=== PATIENT | male | born 1980 | race Caucasian/White ===

== ENCOUNTER 2018-01-21 13:06 | Emergency (ER) | payer OTHER ==
[~2018-01-21] VITALS: Ht 188 cm; Wt 112.5 kg
--- NOTE | 2018-01-21 13:14 | NUR ---
at bedside to see and examine patient.
--- NOTE | 2018-01-21 13:28 | NUR ---
PT. taken down via wheelchair for x-ray.
--- NOTE | 2018-01-21 13:43 | NUR ---
pt. back from x-ray
--- NOTE | 2018-01-21 14:07 | NUR ---
at bedside to review test results with pt.
--- NOTE | 2018-01-21 14:10 | NUR ---
DCD instructions an a copy of x-ray results given to pt. as requested.
[2018-01-22] MEDS ORDERED: LEVOFLOXACIN 750MG/D5W 0 ML IV ONE (06:34)
== END 2018-01-21 14:10 | disposition home or self-care (01) ==
LOC: ER 13:06
DX: S20.211A Contusion of right front wall of thorax, initial encounter (principal); W01.198A Fall on same level from slipping, tripping and stumbling with subsequent striking against other object, initial encounter; Y93.89 Activity, other specified; Y92.89 Other specified places as the place of occurrence of the external cause; Y99.8 Other external cause status
CPT/HCPCS: 71101; 99284; A4663; J1956